=== PATIENT | female | born 1980 | race Hispanic/Latino ===

== ENCOUNTER 2017-04-07 02:25 | Emergency (ER) | payer SELFPAY ==
[2017-04-07 04:53] LABS: APPEARANCE,URINE Cloudy (CLEAR); BILIRUBIN,URINE Negative (NEGATIVE); COLOR,URINE Yellow (YELLOW); GLUCOSE, URINE (UA) Negative (NEGATIVE); KETONES,URINE Negative (NEGATIVE); LEUKOCYTE ESTERASE ,URINE Moderate (NEGATIVE); NITRATE,URINE Negative (NEGATIVE); OCCULT BLOOD,URINE Large (NEGATIVE); PROTEIN,URINE POS 1+ (NEGATIVE)
[2017-04-07 05:15] LABS: BACTERIA,URINE Many /HPF (None Seen); WBC,URINE 51-100 /HPF (0-1)
[2017-04-07 05:16] LABS: MUCUS,URINE Few LPF (None Seen); SQUAMOUS EPITHELIAL CELL,UR Few /LPF (0-2)
== END 2017-04-07 05:33 ==
LOC: EDH 02:25
DX: R07.81 Pleurodynia (principal); Z72.0 Tobacco use; Y04.8XXA Assault by other bodily force, initial encounter; Y93.89 Activity, other specified; Y92.89 Other specified places as the place of occurrence of the external cause; Y99.8 Other external cause status
CPT/HCPCS: 81001; 81025; 87088

== ENCOUNTER 2017-05-31 13:42 | Emergency (ER) | payer SELFPAY ==
[2017-05-31] MEDS ORDERED: HYDROCODONE/ACETAMINOPHEN 5/325 MG TAB ONE (14:50)
[2017-05-31] MEDS ORDERED: IBUPROFEN 600 MG TABLET ONE (14:50)
== END 2017-05-31 15:20 | disposition home or self-care (01) ==
LOC: EDH 13:42
DX: S90.32XA Contusion of left foot, initial encounter (principal); L03.116 Cellulitis of left lower limb; Z72.0 Tobacco use; X58.XXXA Exposure to other specified factors, initial encounter; Y93.89 Activity, other specified; Y92.89 Other specified places as the place of occurrence of the external cause; Y99.8 Other external cause status
CPT/HCPCS: 29515; 73610; 73630

== ENCOUNTER 2018-05-09 12:50 | Emergency (ER) | payer OTHER ==
[2018-05-09] MEDS ORDERED: HYDROCODONE/ACETAMINOPHEN 5/325 MG TAB ONE (13:32)
[2018-05-09 13:50] LABS: BASOPHILS % (AUTO) 0.6 % (0.0-5.0); EOSINOPHILS % (AUTO) 0.1 % (0.0-8.0); LYMPHOCYTES % (AUTO) 23.2 % (21.0-51.0); MEAN CORPUSCULAR HEMOGLOBIN 29.5 pg (27.0-33.0); MEAN CORPUSCULAR HGB CONC 33.2 g/dL (32.0-36.0); MONOCYTES % (AUTO) 5.5 % (3.0-13.0); NEUTROPHILS % (AUTO) 70.6 % (40.0-77.0); PLATELET COUNT (AUTO) 202 K/uL (130-400); RED BLOOD CELL COUNT(AUTO) 4.94 MIL/uL (4.00-5.50); RED CELL DISTRIBUTION WIDTH 15.7 % (11.0-15.5); WHITE BLOOD COUNT (AUTO) 7.9 K/uL (4.8-10.8)
[2018-05-09 13:59] LABS: CREATININE 0.7 mg/dL (0.5-1.5); POTASSIUM 4.2 mmol/L (3.5-5.1)
== END 2018-05-09 14:10 | disposition left against medical advice (07) ==
LOC: EDH 12:50
DX: S70.11XA Contusion of right thigh, initial encounter (principal); R10.30 Lower abdominal pain, unspecified; Z72.0 Tobacco use; Y04.0XXA Assault by unarmed brawl or fight, initial encounter; Y93.89 Activity, other specified; Y92.89 Other specified places as the place of occurrence of the external cause; Y99.8 Other external cause status
CPT/HCPCS: 36415; 80048; 84702; 85025

== ENCOUNTER 2018-06-05 17:17 | Emergency (ER) | payer SELFPAY ==
[2018-06-05] MEDS ORDERED: HYDROXYZINE HCL 25 MG TABLET ONE (17:38)
[2018-06-05] MEDS ORDERED: ACETAMINOPHEN 325 MG TAB ONE ×2 (17:38→17:42)
== END 2018-06-05 17:59 | disposition home or self-care (01) ==
LOC: EDH 17:17
DX: F41.9 Anxiety disorder, unspecified (principal); R25.1 Tremor, unspecified; Z98.51 Tubal ligation status

== ENCOUNTER 2018-09-03 09:41 | Observation (INO) | payer SELFPAY ==
[~2018-09-03] VITALS: Ht 172.7 cm; Wt 75.0 kg
[2018-09-03 10:09] LABS: CHLORIDE 106 mmol/L (101-111); SODIUM SERUM 141 mmol/L (136-145)
[2018-09-03 10:20] LABS: ALANINE AMINOTRANSFERASE 20 U/L (12-78); ALCOHOL, BLOOD 102 mg/dL (0-10); ASPARTATE AMINOTRANSFERASE 27 U/L (10-37); BILIRUBIN,TOTAL 0.5 mg/dL (0.2-1.0); CARBON DIOXIDE 26 mmol/L (21-32); CREATININE 0.7 mg/dL (0.5-1.5); GLOMERULAR FILTR. RATE CALC 100 mL/min (>60); GLUCOSE,RANDOM 92 mg/dL (70-105); HCG,QUANTITATIVE 0 mIU/mL (0-5); TOTAL PROTEIN, SERUM 7.9 g/dL (6.0-8.3); UREA NITROGEN, BLOOD 13 mg/dL (7-18)
[2018-09-03 10:21] LABS: ACETAMINOPHEN < 1 mcg/mL (10-30); SALICYLATE < 2.8 mg/dL (2.8-20.0)
[2018-09-03 10:24] LABS: BASOPHILS % (AUTO) 0.6 % (0.0-5.0); EOSINOPHILS % (AUTO) 0.1 % (0.0-8.0); LYMPHOCYTES % (AUTO) 18.8 % (21.0-51.0); MEAN CORPUSCULAR HEMOGLOBIN 24.2 pg (27.0-33.0); MEAN CORPUSCULAR HGB CONC 25.9 g/dL (32.0-36.0); MEAN CORPUSCULAR VOLUME 93.4 fL (79-99); MONOCYTES % (AUTO) 5.4 % (3.0-13.0); NEUTROPHILS % (AUTO) 75.1 % (40.0-77.0); PLATELET COUNT (AUTO) 159 K/uL (130-400); RED BLOOD CELL COUNT(AUTO) 4.28 MIL/uL (4.00-5.50); RED CELL DISTRIBUTION WIDTH 13.2 % (11.0-15.5); WHITE BLOOD COUNT (AUTO) 6.3 K/uL (4.8-10.8)
[2018-09-03 10:25] LABS: APPEARANCE,URINE Clear (CLEAR); BILIRUBIN,URINE Negative (NEGATIVE); COLOR,URINE Yellow (YELLOW); GLUCOSE, URINE (UA) Negative (NEGATIVE); KETONES,URINE Negative (NEGATIVE); LEUKOCYTE ESTERASE ,URINE Large (NEGATIVE); NITRATE,URINE Negative (NEGATIVE); OCCULT BLOOD,URINE Negative (NEGATIVE); PH,URINE 6.5 (5.0-8.0); PROTEIN,URINE Negative (NEGATIVE)
[2018-09-03 10:32] LABS: AMPHET/METH SCREEN,URINE NEGATIVE (NEGATIVE); BARBITURATE SCREEN, URINE NEGATIVE (NEGATIVE); BENZODIAZEPINES SCREEN,URINE POSITIVE (NEGATIVE); CANNABINOID SCREEN,URINE NEGATIVE (NEGATIVE); COCAINE SCREEN,URINE POSITIVE (NEGATIVE); OPIATE SCREEN,URINE NEGATIVE (NEGATIVE); PHENCYCLIDINE SCREEN,URINE NEGATIVE (NEGATIVE)
[2018-09-03 10:36] LABS: RBC,URINE None Seen /HPF (0-1)
[2018-09-03 10:37] LABS: BACTERIA,URINE Rare /HPF (None Seen); SQUAMOUS EPITHELIAL CELL,UR Few /HPF (0-2)
[2018-09-03] MEDS ORDERED: LORAZEPAM 2 MG/ML 1 ML VIAL IVP PRN (13:15)
[2018-09-03 16:29] VITALS: BP 112/75
--- NOTE | 2018-09-03 16:50 | NUR ---
ADMISSION FROM ER. PER SERVICES OF [facility] . DR. FREIRE . FOR BENZO OVERDOSE, PT . CAME TO FLOOR WITH STAFF ONE TO ONE. MONITOR . PT IS AWAKE AND IS ABLE TO FOCUS WITH QUESTION . BUT DENIES ANY USE OF ACHOLOL AND DRUGS . STATED NO . NO TO QUESTION REGARDING DRUGS AND ETOH. STATUS. PT . WANTING TO SPEAK WITH HER BOYFRIEND. STATED I DONT REMEMBER ANYTHING . WHAT HAPPEN TO ME. WHO BROUGHT ME IN.. . REVIEW PLAN OF CARE. REGARDING HER HOSPITALIZATION. AND ASKING I AM VERY HUNGRY, DENIES ANY HISTORY. ONLY THAT SHE WAS DUE TO GO TO [facility] . STATES TO GO GET SOME MEDICATIONS FOR HER MENTAL . STATUS. AND IS NOT TAKING ANYTHING AT THIS POINT SIEZURES PADS APPLICATION PLACE TO RAILS. BED LEVEL DOWN.. STAFF AT THE BED SIDE FOR THE ONE TO ONE CARE.
--- NOTE | 2018-09-03 18:00 | NUR ---
PT CAME IN WITH A VERY SUPERFICIAL . FACE CHIN ABRASION, AND SOME MARKING TO HER NECK AREA . STATED THAT SHE DOES REMEMBER HOW IT HAPPEN . NOTED NO SKIN BREAKDOWN . TO AREA.
[2018-09-03] MEDS ORDERED: PHARMACY COMMUNICATION MISC SCH (18:45)
--- NOTE | 2018-09-03 18:50 | NUR ---
Jocelin CULP HERE AND ASSESS PT . WITH ORDERS TO FOLLOW /
[2018-09-03] MEDS ORDERED: M.V.I. IV [ADULT] 10 ML, THIAMINE HCL 100 MG, FOLIC ACID 1 MG in SODIUM CHLORIDE 0.9% 1... IV SCH (19:00)
[2018-09-03] MEDS ORDERED: ACETAMINOPHEN 325 MG TAB PO PRN (19:45)
[2018-09-03] MEDS: SODIUM CHLORIDE 0.9% 1000ML 1,000 ML IV SCH ×2 (19:55→20:15)
[2018-09-03 20:00] VITALS: BP 93/56
[2018-09-03] MEDS: GABAPENTIN 100 MG CAPSULE PO SCH (20:15)
[2018-09-03 22:07] VITALS: BP 100/61
[2018-09-04] VITALS: BP 97/57
[2018-09-04] MEDS: SODIUM CHLORIDE 0.9% 1000ML 1,000 ML IV SCH ×2 (02:35→11:59)
[2018-09-04] MEDS ORDERED: PHARMACY COMMUNICATION MISC PRN (02:45)
[2018-09-04] MEDS ORDERED: ONDANSETRON HCL 4 MG/2 ML VIAL IV PRN (02:45)
[2018-09-04] MEDS ORDERED: ACETAMINOPHEN EXTRA STRENGTH 500 MG TABLET PO PRN (02:45)
[2018-09-04] MEDS ORDERED: PROMETHAZINE HCL 25 MG TABLET PO PRN (02:45)
[2018-09-04] MEDS ORDERED: LORAZEPAM 2 MG/ML 1 ML VIAL IVP PRN ×2 (02:45)
[2018-09-04] MEDS ORDERED: CHLORDIAZEPOXIDE HCL 25 MG CAP PO PRN ×2 (02:45)
[2018-09-04 04:00] VITALS: BP 100/72
[2018-09-04 06:47] LABS: BASOPHILS % (AUTO) 0.4 % (0.0-5.0); EOSINOPHILS % (AUTO) 0.2 % (0.0-8.0); HEMATOCRIT 40.3 % (36-48); LYMPHOCYTES % (AUTO) 39.7 % (21.0-51.0); MEAN CORPUSCULAR HEMOGLOBIN 31.5 pg (27.0-33.0); MEAN CORPUSCULAR HGB CONC 34.1 g/dL (32.0-36.0); MEAN CORPUSCULAR VOLUME 92.5 fL (79-99); MONOCYTES % (AUTO) 7.8 % (3.0-13.0); NEUTROPHILS % (AUTO) 51.9 % (40.0-77.0); PLATELET COUNT (AUTO) 222 K/uL (130-400); RED BLOOD CELL COUNT(AUTO) 4.36 MIL/uL (4.00-5.50); RED CELL DISTRIBUTION WIDTH 13.2 % (11.0-15.5); WHITE BLOOD COUNT (AUTO) 7.2 K/uL (4.8-10.8)
[2018-09-04 07:00] VITALS: BP 99/58
[2018-09-04 07:00] LABS: CREATININE 0.8 mg/dL (0.5-1.5); MAGNESIUM 1.8 mg/dL (1.80-2.40); PHOSPHORUS 3.9 mg/dL (2.5-4.9); POTASSIUM 3.7 mmol/L (3.5-5.1)
[2018-09-04] MEDS ORDERED: THIAMINE HCL 100 MG/ML 2ML VIAL IVP SCH (09:00)
[2018-09-04] MEDS ORDERED: FOLIC ACID 1 MG TABLET PO SCH (09:00)
[2018-09-04] MEDS ORDERED: FLUOXETINE HCL 20 MG CAPSULE PO SCH (09:00)
[2018-09-04] MEDS ORDERED: MULTIVITAMIN TABLET PO SCH (09:00)
[2018-09-04] MEDS: GABAPENTIN 100 MG CAPSULE PO SCH (09:40)
--- NOTE | 2018-09-04 09:41 | NUR ---
Patient sleeping, awakened by nurse. Patient denies any suicidal ideations or harming others. Calm and content Addendum: 09/04/18 at 1804 by DI HAYDEN RN RN Amended: Links added.
--- NOTE | 2018-09-04 10:00 | NUR ---
DCP CM met with pt discussed dc plans. Pt is independent, lives at home with significant other, mother lives close by. Denies any equipments/services. Pt states she has no intention of harming herself, goes to [facility]. Feels safe to go back home, still drives, mother and significant other able to assist with transportation and needs as necessary. DC plan to home once stable. CM to cont to follow up. Addendum: 09/04/18 at 1354 by LARRY MEDRANO LVN CM Amended: Links added.
[2018-09-04 11:00] VITALS: BP 95/54
--- NOTE | 2018-09-04 11:06 | NUR ---
Called [facility] for evaluation as per Dr. Andrews cole. Spoke with Dee Walter and stated a exhibit display representative will be by today.
--- NOTE | 2018-09-04 13:25 | NUR ---
Patient and Finighat arguing in the room. Yelling can be heard all the way to nurses station. Finighat/significant other seen walking out briskly out of the room. When assessing what is going on, Pt agitated and states she is going to leave AMA. Liam Ureña here and has just finished his assessment and pending to make appt. . IV removed to right arm and telepack. Security called. Reassured pt she will be getting discharged soon. John returned to room and reassured pt to get her appt for [facility]. Pt calming down and sitting on bed and states will wait for discharge.
--- NOTE | 2018-09-04 13:35 | NUR ---
Patient discharged in stable condition. Patient given appt for [facility] 09/18/2018 @ 08:00am. Patient declined appt with pcp and states she will f/u. Instructed patient to continue medications as prescribed by MD. Instructed patient on alcohol Intocixation, Benzodiazepine and Accidental overdose. Patient denies suicidal Ideations but instructed to call the National Suicide Prevention Hotline [phone] if any thoughts of suicide or harming self or others. No other questions or concerns voiced.
== END 2018-09-04 13:42 | disposition home or self-care (01) ==
LOC: EDH 09:41 → EDHIP 09:42 → EEVIPCON 09:42 → 3CH 15:50
PROVIDERS: ADMIT Internal Medicine Critical Care Medicine; ATTEND Internal Medicine Critical Care Medicine
DX: F10.10 Alcohol abuse, uncomplicated (principal); R45.851 Suicidal ideations; G40.909 Epilepsy, unspecified, not intractable, without status epilepticus; F60.2 Antisocial personality disorder; F14.10 Cocaine abuse, uncomplicated; F17.200 Nicotine dependence, unspecified, uncomplicated; Z79.899 Other long term (current) drug therapy
CPT/HCPCS: 36415 ×2; 70450; 71045; 72125; 80048; 80053; 80305; 81001; 83735; 84100; 84702; 85025 ×2; 93005; 96365; 96366 ×2; 96375 ×2; 99284; G0378 ×8; G0480 ×2; G0481; J2060; J3411 ×2; J3490; J7030

== ENCOUNTER 2019-10-31 13:44 | Emergency (ER) | payer OTHER ==
[2019-10-31] MEDS ORDERED: ACETAMINOPHEN EXTRA STRENGTH 500 MG TABLET ONE (14:09)
== END 2019-10-31 16:27 | disposition home or self-care (01) ==
LOC: EDH 13:44
DX: S42.031A Displaced fracture of lateral end of right clavicle, initial encounter for closed fracture (principal); S16.1XXA Strain of muscle, fascia and tendon at neck level, initial encounter; S93.601A Unspecified sprain of right foot, initial encounter; S43.51XA Sprain of right acromioclavicular joint, initial encounter; Y08.89XA Assault by other specified means, initial encounter; Y93.89 Activity, other specified; Y92.098 Other place in other non-institutional residence as the place of occurrence of the external cause; Y99.8 Other external cause status
CPT/HCPCS: 29105; 72040; 73030; 73630

== ENCOUNTER 2021-09-20 00:33 | Emergency (ER) | payer OTHER ==
[2021-09-20 00:35] VITALS: BP 148/98
[2021-09-20] MEDS ORDERED: IBUPROFEN 600 MG TABLET PO ONE (01:00)
== END 2021-09-20 03:06 | disposition home or self-care (01) ==
LOC: EEVIPCON 00:33 → EDH 00:33
DX: S01.81XA Laceration without foreign body of other part of head, initial encounter (principal); R42 Dizziness and giddiness; Z79.1 Long term (current) use of non-steroidal anti-inflammatories (NSAID); Y08.89XA Assault by other specified means, initial encounter; Y93.89 Activity, other specified; Y92.89 Other specified places as the place of occurrence of the external cause; Y99.8 Other external cause status